=== PATIENT | female | born 1975 | race Caucasian/White ===

== ENCOUNTER 2023-08-14 06:04 | Day surgery (SDC) | payer OTHER ==
[2023-08-13 12:33] LABS: URINE APPEARANCE Cloudy; URINE BILIRRUBIN Negative (NEGATIVE); URINE BLOOD Large; URINE COLOR Yellow; URINE GLUCOSE Negative (NEGATIVE); URINE LEUKOCYTE Large; URINE NITRATE Positive; URINE PROTEIN 30 (NEGATIVE); URINE UROBILINOGEN 0.2 E.U./dl
[2023-08-13 12:41] LABS: URINE EPITHELIAL CELLS 10.9 uL (0.0-38.8); URINE RBC 6527.5 uL (0.0-20.8); URINE WBC 601.2 uL (0.0-23.2)
[2023-08-13 12:45] LABS: URINE BACTERIA > 9821.5 uL (0.0-1933)
[2023-08-13 13:02] LABS: HEMATOCRIT 37.2 % (36.0-45.00); HEMOGLOBIN 13.2 g/dL (12.0-15.00); MEAN CELL VOLUME 89.1 fL (80.00-100.00); MEAN CORPUSCULAR HEMOGLOBIN 31.5 pg (27.00-32.0); MEAN CORPUSCULAR HGB CONC 35.3 g/dl (32.0-36.0); PLATELET COUNT 273 K/uL (150-450); RED BLOOD COUNT 4.18 M/uL (4.00-6.00); RED CELL DISTRIBUTION WIDTH 13.2 % (11.5-14.5)
[2023-08-13 13:03] LABS: INR 0.96; PARTIAL THROMBOPLASTIN TIME 28.9 SECONDS (22.0-34.0); PROTHROMBIN TIME 10.1 SECONDS (9.0-11.5)
[2023-08-13 13:07] LABS: BILIRUBIN TOTAL 1.57 mg/dL (0.3-1.2); CALCIUM 9.5 mg/dL (8.5-10.1); CREATININE SERUM 0.78 mg/dL (0.55-1.02); GFR 79.16; GLOBULINA 3.4 G/DL (2.4-3.5); POTASSIUM 4.31 mEq/L (3.5-5.1); TOTAL PROTEIN 7.4 gm/dL (6.4-8.2)
[2023-08-14] MEDS ORDERED: POVIDONE-IODINE 118 ML BOTT TOP ONE ×3 (07:04→10:15)
[2023-08-14] MEDS ORDERED: POVIDONE-IODINE 3 EA MED..SWAB TOP ONE (07:04)
[2023-08-14] MEDS ORDERED: GENTAMICIN SULFATE 40 MG/ML VIAL ONE (07:05)
[2023-08-14] MEDS ORDERED: EPINEPHRINE HCL/PF 1 MG/ML AMPUL ONE (07:05)
[2023-08-14] MEDS ORDERED: CEFAZOLIN SODIUM 1,000 MG VIAL ONE (07:06)
[2023-08-14] MEDS ORDERED: BUPIVACAINE HCL/PF 0.5% 30ML ML ONE (07:37)
[2023-08-14] MEDS ORDERED: CLINDAMYCIN PHOSPHATE 150 MG/ML (900mg) ONE (08:15)
[2023-08-14] MEDS ORDERED: CLINDAMYCIN PHOSPHATE 150 MG/ML (900mg) IV ONE (10:00)
[2023-08-14] MEDS ORDERED: POVIDONE-IODINE SCRUB 118 ML BOTT TOP ONE (10:15)
[2023-08-14] MEDS ORDERED: CEFAZOLIN SODIUM 1,000 MG VIAL IJ ONE (10:15)
[2023-08-14] MEDS ORDERED: GENTAMICIN SULFATE 40 MG/ML VIAL IR ONE (10:15)
== END 2023-08-14 16:05 | disposition home or self-care (01) ==
LOC: CIR.AMB 06:04
PROVIDERS: ATTEND Surgery
DX: C50.411 Malignant neoplasm of upper-outer quadrant of right female breast (principal); R59.0 Localized enlarged lymph nodes; N60.82 Other benign mammary dysplasias of left breast; N60.92 Unspecified benign mammary dysplasia of left breast; Z90.13 Acquired absence of bilateral breasts and nipples
CPT/HCPCS: 19303; 38525; 19357; A9541

== ENCOUNTER 2023-10-24 19:30 | Emergency (ER) | payer OTHER ==
[~2023-10-24] VITALS: Ht 165.1 cm; Wt 72.1 kg
[2023-10-24] MEDS ORDERED: 0.9 % SODIUM CHLORIDE 500 ML IV ONE (21:30)
[2023-10-24] MEDS ORDERED: ONDANSETRON HCL 2 MG/ML VIAL IV ONE (21:30)
[2023-10-24] MEDS ORDERED: LACTOBACILLUS ACIDOPHILUS 1 CAP CAP PO ONE (21:30)
[2023-10-24] MEDS ORDERED: FAMOTIDINE/PF 20 MG/2 ML VIAL IV ONE (21:30)
[2023-10-24 22:08] LABS: HEMATOCRIT 42.8 % (36.0-45.00); HEMOGLOBIN 15.2 g/dL (12.0-15.00); MEAN CELL VOLUME 85.7 fL (80.00-100.00); MEAN CORPUSCULAR HEMOGLOBIN 30.5 pg (27.00-32.0); MEAN CORPUSCULAR HGB CONC 35.6 g/dl (32.0-36.0); PH,URINE 5.5 (5.0-8.0); PLATELET COUNT 206 K/uL (150-450); RED BLOOD COUNT 4.99 M/uL (4.00-6.00); RED CELL DISTRIBUTION WIDTH 13.5 % (11.5-14.5); URINE APPEARANCE Cloudy; URINE BILIRRUBIN Negative (NEGATIVE); URINE BLOOD Small; URINE COLOR Yellow; URINE GLUCOSE Negative (NEGATIVE); URINE LEUKOCYTE Trace; URINE NITRATE Negative; URINE UROBILINOGEN 0.2 E.U./dl
[2023-10-24 22:11] LABS: URINE BACTERIA 2223.8 uL (0.0-1933); URINE EPITHELIAL CELLS 24.7 uL (0.0-38.8); URINE WBC 62.1 uL (0.0-23.2)
[2023-10-24 22:28] LABS: URINE PROTEIN 300 (NEGATIVE)
[2023-10-24 22:31] LABS: URINE MUCUS MODERATE; URINE YEAST NEGATIVE /hpf
[2023-10-24 22:42] LABS: ALBUMIN 3.7 gm/dL (3.4-5.0); BILIRUBIN TOTAL 1.16 mg/dL (0.3-1.2); CALCIUM 9.8 mg/dL (8.5-10.1); CREATININE SERUM 1.38 mg/dL (0.55-1.02); GFR 40.98; GLOBULINA 4.9 G/DL (2.4-3.5); POTASSIUM 3.16 mEq/L (3.5-5.1); TOTAL PROTEIN 8.6 gm/dL (6.4-8.2)
[2023-10-24] MEDS ORDERED: MORPHINE SULFATE 4 MG/ML VIAL IV ONE (23:30)
[2023-10-24] MEDS ORDERED: METRONIDAZOLE/SODIUM CHLORIDE 500 MG/100 ML PIGGYBACK IV ONE (23:30)
[2023-10-24] MEDS ORDERED: CIPROFLOXACIN IN 5 % DEXTROSE 400 MG/200 ML PIGGYBAG IV ONE (23:30)
[2023-10-25] MEDS ORDERED: DIPHENOXYLATE HCL/ATROPINE 1 UDTAB TABLET PO ONE (05:15)
[2023-10-25] MEDS ORDERED: KETOROLAC TROMETHAMINE 30 MG VIAL IV ONE (05:30)
[2023-10-25] MEDS ORDERED: PROTONIX40 MG PO (07:34)
[2023-10-25] MEDS ORDERED: CIPRO500 MG PO (07:34)
[2023-10-25] MEDS ORDERED: METRONIDAZOLE500 MG PO (07:34)
[2023-10-25] MEDS ORDERED: LEVSIN/SL0.125 MG SL (07:34)
[2023-10-25] MEDS ORDERED: INTESTINEX680 M1 PO (07:34)
== END 2023-10-25 07:42 | disposition home or self-care (01) ==
LOC: ER 19:30
PROVIDERS: Nurse Practitioner Family
DX: K52.89 Other specified noninfective gastroenteritis and colitis (principal); R10.31 Right lower quadrant pain